=== PATIENT | male | born 1995 | race American Indian/Alaskan Native ===

== ENCOUNTER 2019-07-28 19:16 | Emergency (ER) | payer SELFPAY ==
--- NOTE | 2019-07-28 19:26 | Event Note ---
ED Screening Note Date of service: 07/28/19 Time: 19:22 ED Screening Note: 23 y o male presents to Ed stating he swallowed a tooth while he was getting an extraction today at the dentist and was told to get a cxr for forein body This initial assessment/diagnostic orders/clinical plan/treatment(s) is/are subject to change based on patients health status, clinical progression and re- assessment by fellow clinical providers in the ED. Further treatment and workup at subsequent clinical providers discretion. Patient/guardian urged not to elope from the ED as their condition may be serious if not clinically assessed and managed. Initial orde cxr acc eval
[2019-07-28 20:06] VITALS: BP 138/56
--- NOTE | 2019-07-28 20:24 | XRay Report ---
CHEST 2 VIEWS INDICATION / CLINICAL INFORMATION: possible Foreign body. COMPARISON: None available. FINDINGS: SUPPORT DEVICES: None. HEART / MEDIASTINUM: No significant abnormality. LUNGS / PLEURA: No significant pulmonary or pleural abnormality. .No pneumothorax. ADDITIONAL FINDINGS: No radiopaque foreign bodies are seen. IMPRESSION: 1. No acute findings. Signer Name: Robson Armstrong MD Signed: 07/28/2019 8:19 PM Workstation Name: [id number]
== END 2019-07-28 22:26 | disposition left against medical advice (07) ==
LOC: ED 19:16
DX: Z53.21 Procedure and treatment not carried out due to patient leaving prior to being seen by health care provider (principal)
CPT/HCPCS: 71046